=== PATIENT | male | born 1995 | race Caucasian/White ===

== ENCOUNTER → 2017-12-05 | Outpatient (CLI) | payer OTHER ==
[2017-12-05 11:43] LABS: INR 1.1 (<1.2); Partial Thromboplastin Time 24.6 sec (22.0-30.0); Prothrombin Time 10.6 sec (9.0-12.0)
[2017-12-05 11:46] LABS: HCT 45.7 % (39.0-53.0); HGB 15.4 gm/dL (13.0-17.5); MCH 29.7 pg (25.0-35.0); MCHC 33.6 g/dL (31.0-37.0); MCV 88.3 fL (80.0-100.0); RBC 5.18 m/uL (4.30-5.90); RDW 12.6 % (11.5-15.5); WBC 8.3 k/uL (4.0-11.0)
== END | disposition home or self-care (01) ==
LOC: LABPAT 10:37
PROVIDERS: ATTEND Otolaryngology
DX: Z01.812 Encounter for preprocedural laboratory examination (principal); J35.1 Hypertrophy of tonsils
CPT/HCPCS: 36415; 85027; 85610; 85730

== ENCOUNTER 2017-12-15 08:25 | Day surgery (SDC) | payer OTHER ==
[2017-12-07 11:49] VITALS: BMI 27.8
--- NOTE | 2017-12-15 05:05 | HP ---
HISTORY AND PHYSICAL PREOP DIAGNOSIS: Chronic tonsillitis with tonsillar hypertrophy. HISTORY OF PRESENT ILLNESS: This patient is a 22-year-old male who was recently seen in my office for evaluation of recurrent episodes of tonsillitis despite treatment with various types of oral antibiotics. In addition to this, patient states that his tonsils have become extremely large over the years and it has become difficult to swallow and breathe. He also snores quite loudly at night and this may affect his speech pattern. At the time that he was seen in my office, clinical examination of the oropharynx revealed 4+ tonsillar hypertrophy with very prominent tonsillar crypts filled with white cheesy debris. It was recommended that the patient undergo a tonsillectomy under general anesthesia. PAST MEDICAL HISTORY: Past medical history reveals that the patient has no known allergies to medications. He has never had any previous surgeries. CURRENT MEDICATIONS: Include Claritin and [id number] medications for migraine headaches. There is no history of asthma, diabetes mellitus or hypertension. REVIEW OF SYSTEMS: Completely unremarkable. PHYSICAL EXAMINATION: The patient is a 22-year-old male who was alert and cooperative. HEENT examination: Patient is normocephalic. Tympanic membranes are normal. Middle ear spaces are free of any fluid or infection. Pupils equal, round, react to light and accommodation. Extraocular movements within normal limits. Intranasal examination reveals mild septal deviation with compensatory hypertrophy of the inferior turbinates. Examination of oropharynx reveals 4+ tonsillar hypertrophy with very prominent tonsillar crypts filled with white cheesy debris. Cranial nerves 2 through 12 and the remainder of the head and neck exam is unremarkable. Chest/cardiovascular: Both lung gregg are clear to percussion and auscultation. The patient is in regular sinus rhythm. S1, S2 are present without any murmurs. ABDOMEN: There is no evidence of any masses, megaly or tenderness. Abdomen is soft. Skin is unremarkable. Musculoskeletal and neurological and the remainder of the physical exam is essentially unremarkable. IMPRESSION: Chronic tonsillitis with tonsillar hypertrophy. PLAN: The patient is scheduled undergo a tonsillectomy under general anesthesia in a.m. Attention RNs: The only medications that I have ordered for this patient to receive are Ofirmev 1000 mg IV and also 2 g Ancef IV, both to be given once an intravenous line has been established. If the pharmacy department sends any other pre-surgical prophylactic antibiotics to the pre-surgical area for this patient, that order should be cancelled and the medication should be returned to the pharmacy department. Also please make sure that the patient's account is credited appropriately. I have discussed the risks, benefits and alternative therapies for the above-mentioned procedure and for both sedation/analgesia as well as necessary blood product administration, if indicated, as they pertain to this patient. The patient has indicated his or her understanding and acceptance of the risks and procedures discussed. FAYE / ELIANAN: [id number] /
[~2017-12-15 08:25] MED LIST: DEXAMETHASONE SOD PHOSPHATE 10 MG/ML 1 ML VIAL IV ONE; LACTATED RINGERS 1,000 ML IV SCH; MIDAZOLAM 2 MG/2 ML VIAL IV PRN; NALOXONE 0.4 MG/ML 1 ML VIAL IV PRN; ONDANSETRON 4 MG/2 ML VIAL IVP ONE; Pre Op ABX Message 1 EACH MISC MISCELLANE ONE; SCOPOLAMINE 1.5MG/72HR PATCH TRANSDERM ONE; fentaNYL (PF) 50 MCG/ML 2 ML AMP IV PRN
[2017-12-15] MEDS ORDERED: LIDOCAINE 1% 20 ML VIAL (10MG/ML) FOR IV START INTRADERMA ONE (09:23)
[2017-12-15] MEDS ORDERED: ceFAZolin IN SWFI 2 GM/20 ML SYRINGE IVP ONE (09:45)
[2017-12-15] MEDS ORDERED: ACETAMINOPHEN IV (For NPO) 1,000 MG in EMPTY BAG 1 BAG IVPB ONE ×3 (09:45→16:15)
[2017-12-15] MEDS ORDERED: PROPOFOL 10 MG/ML 20 ML VIAL IV ONE (10:22)
[2017-12-15] MEDS ORDERED: SUCCINYLCHOLINE CHLORIDE VIAL 200 MG/10 ML VIAL IV ONE (10:22)
[2017-12-15] MEDS ORDERED: LIDOCAINE 1% INJ 10MG/ML (20 ML MDV) ONE (10:22)
[2017-12-15] MEDS ORDERED: DEXAMETHASONE SOD PHOS (MDV) 100 MG/10 ML VIAL ONE (10:22)
[2017-12-15] MEDS ORDERED: MIDAZOLAM 2 MG/2 ML VIAL ONE (10:22)
[2017-12-15] MEDS ORDERED: fentaNYL (PF) 50 MCG/ML 2 ML AMP ONE (10:22)
[2017-12-15] MEDS ORDERED: BUPIVACAINE (PF) 0.5% 30 ML VIAL SQ ONE (10:51)
[2017-12-15] MEDS ORDERED: LACTATED RINGERS 1,000 ML IV SCH (11:30)
[2017-12-15] MEDS ORDERED: HYDROmorphone PCA 5 MG/25 ML SYRINGE IV PRN (11:30)
[2017-12-15 11:56] VITALS: TEMP 98
[2017-12-15] MEDS: HYDROmorphone 1 MG/ML 1 ML SYRINGE IVP ONE ×3 (12:05→16:32)
[2017-12-15] MEDS ORDERED: ONDANSETRON 4 MG/2 ML VIAL IVP ONE (12:17)
[2017-12-15] MEDS ORDERED: ONDANSETRON 4 MG/2 ML VIAL IVP PRN (13:00)
[2017-12-15 13:47] VITALS: RESP 16
[2017-12-15 16:38] VITALS: BP 125/76; PULSE 89
--- NOTE | 2017-12-17 17:36 | OP ---
OPERATIVE REPORT DATE OF SURGERY: 12/15/2017. PREOPERATIVE DIAGNOSIS: Chronic tonsillitis with tonsillar hypertrophy. POSTOPERATIVE DIAGNOSIS: Chronic tonsillitis with tonsillar hypertrophy. ANESTHESIA: General. OPERATIVE PROCEDURE: Tonsillectomy. SURGEON: Dr. Thompson. COMPLICATIONS: None. ESTIMATED BLOOD LOSS: Less than 40 mL. OPERATIVE PROCEDURE: The patient was placed on the Operating Table in the supine position, after uneventful induction and endotracheal intubation, satisfactory general anesthesia was obtained. Next, the #3 Sophie-Rolf mouth gag was introduced into the oropharynx, expanded and suspended from a Del Castillo Stand. Following this, both peritonsillar areas were injected with the tonsillar forceps and pulled medially. The sickle knife was used to make an incision 4 mm lateral to the anterior pillar, beginning at the superior pole and working down to the inferior pole with a similar incision being carried out parallel to the posterior pillar. The angle scissors and the serrated Elizabeth dissector were used to dissect the tonsil away from the tonsillar fossa. The tonsil itself was excised en toto using the tonsillar snare. Hemostasis was obtained using suction cautery. A sponge was placed in the empty tonsillar fossa. Attention was then directed to the left tonsil where the same procedure was carried out, with the left tonsil being grasped with the tonsillar forceps and pulled medially. The sickle knife was used to make an incision 4 mm lateral to the anterior pillar beginning at the superior pole and working down to the inferior pole with a similar incision being carried out parallel to the posterior pillar. Once again, the angle scissors and the serrated Elizabeth dissector were used to dissect the tonsil away from the tonsillar fossa and the tonsil itself was excised en toto using the tonsillar snare. Hemostasis was obtained using suction cautery. A sponge was placed in the empty tonsillar fossa. The mouth gag was relaxed for a period of approximately seven minutes and upon re-expanding and removing all sponges, no evidence of any active bleeding was noted. At this point, the procedure was terminated. There were no intraoperative complications. The patient tolerated the procedure well and was returned to the Recovery Room in satisfactory condition. MMODL / IJN: [id number] /
== END 2017-12-15 17:13 | disposition home or self-care (01) ==
LOC: OR 08:25
PROVIDERS: ATTEND Otolaryngology
DX: J35.01 Chronic tonsillitis (principal); G43.909 Migraine, unspecified, not intractable, without status migrainosus; Z79.899 Other long term (current) drug therapy; Z79.2 Long term (current) use of antibiotics; Z79.891 Long term (current) use of opiate analgesic
CPT/HCPCS: 88304; 42826; J2250; J0330; J1100 ×2; J2405; J2001; J3010; J1170; J0131; J2704; J0690